=== PATIENT | female | born 1990 | race Caucasian/White ===

== ENCOUNTER 2023-04-07 09:09 | Outpatient (AMB) | payer OTHER, SELFPAY ==
[2023-04-07 09:19] VITALS: BP 118/76; PULSE 78; RESP 13; TEMP 36.4; O2SAT 98; BMI 44.7
--- NOTE | 2023-04-07 09:19 | MHC.PC.OV ---
Vital Signs 04/07/23 09:19 Height 5 ft 4 in Weight 260 lb 4 oz BMI 44.7 BP 118/76 Blood Pressure Location Lt brachial Position Sitting Respiration 13 Pulse 78 Pulse Source Pulse Oximeter Temp 97.6 F Temp Source Temporal Artery Scan Pulse Oximetry (%) 98 Oxygen Delivery Method Room Air Intake Visit Reasons: New patient-Requesting physical Intake Note: Patient hasn't seen a doctor since 2018. Patient states that she is having vision issues that causes double vision and blurred vision. Patient states that she is having trouble swallowing because it feels like when she eats or drinks it feels like its sitting in her throat and on her chest.Patient states that she sighs alot and may have a hiadial hernia. Patient states that she smells random smells that aren't there and the smell is so strong that it makes her gag. Patient states that whrn she asks if anyone else smells it no one else can smell it. Dispatch Associate Required: No Accompanied by: Self / Same As Patient Allergies naloxone [From Narcan] Adverse Reaction (Severe, Verified 04/07/23 09:40) Anaphylaxis naltrexone Adverse Reaction (Severe, Verified 04/07/23 09:40) Anaphylaxis Medication List - Last Reconciled 04/07/23 by Rosa Isela Hurley CNP clonidine HCl 0.1 mg PO BID methadone 95 mg PO DAILY topiramate 25 mg PO BID valacyclovir (Valtrex) 1,000 mg PO DAILY PRN valacyclovir (Valtrex) 500 mg PO DAILY Tobacco use date assessed: 04/07/23 Dental Screening Dental Screen Date: 04/07/23 Did you have a dental visit in the last 12 months?: No Did you have a dental problem in the last 6 months where you did not have access to dental care?: No Was dental information given to patient?: Yes HPI HPI Comments History of Present Illness Details 33-year-old [facility] She notes that she was last evaluated by her former PCP and had routine blood work done in 2018. She has past medical history significant for generalized headaches, substances disorder (heroin and cocaine), genital herpes, eczema, ADHD, anxiety, and depression. She is on clonidine, methadone, topiramate, and acyclovir. She admits to taking her medications as prescribed. She notes that her mood is stable on Clonidine. She notes that she sees a therapist weekly and a psychiatrist monthly. She reports blurry and double vision of both eyes immediately after reading, lasting 1-2 hours. These symptoms have been ongoing for the past 4-6 months. She also reports difficulty swallowing on while eating and drinking. She states it feels like something is sitting in her throat when she eats and drinks. She notes that these symptoms have been persistent for the past 2-3 years. She notes that she has not use recreational drugs for the past 5 years. She goes to a methadone clinic. She notes that she binge eats unhealthy foods and has not been exercising. She requests help with weight loss. She notes that she that she is , no currently sexually active, and has no concerns for STD. She notes that her last pap smear test was in 2018: normal [facility] Medical History (Updated 04/07/23 @ 10:20 by Rosa Isela Hurley CNP) Delivery by emergency section Memory loss Generalized headaches Eczema Genital herpes ADHD Anxiety and depression Substance use disorder Viral meningitis Surgical History (Updated 04/07/23 @ 09:47 by Lianna Cheng MA) No pertinent past surgical history Family History (Updated 04/07/23 @ 09:51 by Lianna Cheng MA) Mother High blood pressure Thyroid disorder Alcoholism Psychiatric disorder Father High blood pressure High cholesterol Diabetes Cardiovascular disease Alcoholism Social History Housing: Condominium Patient Tobacco Use Status: Former Tobacco user e-Cigarette/Vaping Use: Currently Using service: No Current occupational status: student Cognitive needs: No Hearing needs: No Vision needs: Yes Questionnaire PHQ-9 Over the last 2 weeks, how often have you been bothered by any of the following problems? 1. Little interest or pleasure in doing things: more than half the days 2. Feeling down, depressed, or hopeless: more than half the days 3. Trouble falling or staying asleep, or sleeping too much: more than half the days 4. Feeling tired or having little energy: more than half the days 5. Poor appetite or overeating: more than half the days 6. Feeling bad about yourself - or that you are a failure or have let yourself or your family down: more than half the days 7. Trouble concentrating on things, such as reading the newspaper or watching television: not at all 8. Moving or speaking so slowly that other people could have noticed. Or the opposite - being so fidgety or restless that you have been moving around a lot more than usual: more than half the days 9. Thoughts that you would be better off or of hurting yourself in some way: not at all Total score: 14 Depression Screening Interpretation: Positive Depression Screening Follow-up: Existing condition and In treatment Depression Screening Done: Yes Source: Developed by Drs. Ace Tolentino, Valery Fuentes, Edgar Aguilar and colleagues, with an educational atiya from [employer]. Thrive Questionnaire Date Thrive assessed: 04/07/23 I am a: Patient What is your living situation today?: I have a steady place to live Within the past 12 months, did the food you bought not last and you didn't have the money to get more?: Often true Within the past 12 months, did you worry whether your food would run out before you got money to buy more?: Often true Do you have trouble paying for medicines?: No Do you have trouble getting transportation to medical appointments?: No Do you have trouble paying your heating and electricity bill?: Yes Do you have trouble taking care of your child, family member or friend?: No Do you have trouble with day-to-day activities such as bathing, preparing meals, shopping, managing finances, etc.?: Yes Are you currently unemployed and looking for a job?: No Are you interested in more education?: Yes Please select the resources that you would like help with: Food, Utilities, Daily support and Education Currently or been in a relationship where the following occur: no concerns reported AUDIT C Alcohol Use Questionnaire (AUDIT-C) 1. How often do you have a drink containing alcohol?: Never 3. How often do you have six or more drinks on one occasion?: Never Total Score: 0 JAE-7 AMB Questionnaire JAE-7 Date JAE - 7 assessed: 04/07/23 Feeling nervous, anxious, or on edge: 2 = More than half the days Not being able to stop or control worryin = More than half the days Worrying too much about different things: 2 = More than half the days Trouble relaxin = Nearly every day Being so restless that it is hard to sit still: 1 = Several days Becoming easily annoyed or irritable: 3 = Nearly every day Feeling afraid as if something awful might happen: 1 = Several days Total JAE-7 score (0-4 normal; 5-9 mild; 10-14 moderate; 15-21 severe): 14 Source: Developed by Drs. Ace Tolentino, Valery Fuentes, Edgar Aguilar and colleagues, with an educational atiya from [employer]. Review of Systems Const Details: Denies chills, Denies fatigue, Denies fever(s), Denies headache(s) and Denies weakness HEENT Denies change in vision, Denies dizziness, Denies headache(s), Denies hearing loss, Denies nasal congestion, Denies sinus pain, Denies sinus pressure and Denies sore throat Card Denies chest pain, Denies lightheadedness, Denies dyspnea and Denies other (palpitations) Resp Denies cough, Denies dyspnea and Denies wheezing GI Denies abdominal pain, Denies melena, Denies hematochezia, Denies change in bowel habits, Denies dyspepsia and Denies nausea Denies hematuria and Denies dysuria Musc Denies abnormal gait, Denies myalgias, Denies arthralgias, Denies numbness and Denies tingling Skin/Breast Denies rash, Denies unusual bruising and Denies wounds Neuro Denies abnormal gait, Denies dizziness, Denies headache(s), Denies memory loss, Denies numbness, Denies Sensory deficit (Neuro), Denies tingling and Denies weakness Psych Denies anxiety, Denies depression and Denies memory loss Endo Denies cold intolerance, Denies fatigue, Denies heat intolerance, Denies polydipsia and Denies polyuria Goeff/Lymph Denies easy bleeding and Denies easy bruising Aller/Immun Denies wheezing Physical exam (Primary Care) Vital Signs: Last Vital Signs Temp 97.6 F 04/07/23 09:19 Pulse 78 04/07/23 09:19 Resp 13 04/07/23 09:19 BP 118/76 04/07/23 09:19 Pulse Ox 98 04/07/23 09:19 Oxygen Delivery Method Room Air 04/07/23 09:19 BMI result Body Mass Index 44.7 Tobacco/Smoking Status: Tobacco use Status Tobacco use date assessed 04/07/23 04/07/23 09:37 Patient Tobacco Use Status Former Tobacco user 04/07/23 09:37 e-Cigarette/Vaping Use Currently Using 04/07/23 09:37 PHQ-9: PHQ-9 Score PHQ-9: Total score 16 04/07/23 10:01 Depression Screening Interpretation: Positive Depression Screening Follow-up: Existing condition and In treatment Thrive Assessment: Date of Thrive Assessment Date Thrive assessed 04/07/23 04/07/23 09:43 Currently or been in a relationship where the following occur: no concerns reported Const Other: General: no acute distress, well developed, alert and awake Nutritional Appearance: well nourished Orientation/consciousness: patient oriented x3 HENMT Head: Yes normocephalic and Yes atraumatic Ears: hearing grossly normal bilaterally and TM's normal bilaterally General nose exam: Normal external nose present and Normal nares present Mouth: Normal oral and palatal mucosa present and moist mucous membranes Teeth and gingiva: dentition normal Throat: Yes oropharynx normal Eyes Pupils: Equal, round and reactive pupils present and Pupil accommodation reflex normal EOM: EOMs intact bilaterally Neck Neck: Yes normal visual inspection, Yes no lymphadenopathy and Yes trachea midline Thyroid: Thyroid normal Carotids: no bruits Lymphatic: no lymphadenopathy noted Chest Chest palpation & inspection: normal inspection of the chest Resp Effort & Inspection: normal respiratory effort Auscultation: clear to auscultation bilaterally Cardio Rate: regular rate Rhythm: regular rhythm Heart sounds: S1 normal heart sound present, S2 normal heart sound present, no gallops, no murmurs and no rubs Bruits: no abdominal aortic bruits and no carotid bruits GI Palpation (GI): No Abdominal aortic bruit present, Soft to palpation, nontender, No hepatosplenomegaly present and No Rebound tenderness present Auscultation: normal bowel sounds General: Yes no CVA tenderness Back/Spine/Pelvis Back: no CVA tenderness Cervical Spine: cervical ROM normal and No Cervical spine tenderness Thoracic/Lumbar Spine: thoraco-lumbar ROM normal, No pain with thoraco-lumbar ROM, No thoracic spinal tenderness and No lumbar spinal tenderness Skin General: warm and dry. Normal skin color. Normal skin turgor Lesions: no lesions Rashes: no rashes Trauma: no lacerations or abrasions Wounds: no wounds Nails: normal Neuro General: patient oriented x3, gait normal and CN's II-XI intact bilaterally Cranial nerves: Yes Equal, round and reactive pupils present Cognition (Neuro): normal cognition Gait exam (Neuro): Normal gait present Motor exam (neuro): 5/5 motor strength present throughout Sensory Exam: No Sensory deficit (Neuro) Deep tendon reflexes (DTR's): Right patellar reflex intensity grade: 2+ and Left patellar reflex intensity grade: 2+ Extrem General: Yes normal to inspection, No edema and No calf tenderness Psych Appearance: grossly normal Affect: normal affect Attitude: cooperative Thought process: Normal thought process present Assessment and Plan Assessment & Plan (1) Normal physical examination, routine: Code(s): Z00.00 - Encounter for general adult medical examination without abnormal findings Plan: No significant physical restrictions or limitations noted Advised to get fasting blood work done before her next visit Follow-up in 1 month for labs review, anxiety, and depression. Return sooner with worsening or new symptoms Verbalized understanding and agreed with treatment plan. (2) Visual disturbances: Code(s): H53.9 - Unspecified visual disturbance Plan: She reports blurry and double vision of both eyes immediately after reading, lasting 1-2 hours. These symptoms have been ongoing for the past 4-6 months. Normal eye exam Normal blood pressure No acute symptoms Referred to Ophthalmology Return with worsening or new symptoms Verbalized understanding and agreed with treatment plan. (3) Dysphagia: Code(s): R13.10 - Dysphagia, unspecified Plan: She also reports difficulty swallowing on while eating and drinking. She states it feels like something is sitting in her throat when she eats and drinks. She notes that these symptoms have been persistent for the past 2-3 years. Normal swallowing No current symptoms Referred to ENT Return with worsening or new symptoms Verbalized understanding and agreed with treatment plan. (4) Anxiety and depression: Code(s): F41.9 - Anxiety disorder, unspecified; F32.A - Depression, unspecified Plan: PHQ-9 and JAE-7 scores revealed moderately severe depression and moderate anxiety respectively She denies acute anxiety and depression symptoms Continue to take clonidine as prescribed Continue follow-up with therapist and psychiatrist as planned Follow-up in 1 month or return sooner with worsening or new symptoms Verbalized understanding and agreed with treatment plan. (5) Morbid obesity with BMI of 40.0-44.9, adult: Code(s): E66.01 - Morbid (severe) obesity due to excess calories; Z68.41 - Body mass index [BMI] 40.0-44.9, adult Plan: She notes that she binge eats unhealthy foods and has not been exercising. She requests help with weight loss. She weighs 260 lb, BMI is 44.7 Healthy diet and routine exercise encouraged Referred to with management Return with symptoms or concerns Verbalized understanding and agreed with treatment plan. (6) Binge eating: Code(s): R63.2 - Polyphagia Plan: As above (7) Substance use disorder: Code(s): F19.90 - Other psychoactive substance use, unspecified, uncomplicated Plan: In remission She reports history of heroin and cocaine use She notes that she has not use recreational drugs for the past 5 years. She goes to a methadone clinic She is currently on methadone 95 mg daily. Advised to continue to take as prescribed Continue to go to the methadone clinic Follow-up with symptoms or concerns Verbalized understanding and agreed with treatment plan. (8) Pap smear for cervical cancer screening: Code(s): Z12.4 - Encounter for screening for malignant neoplasm of cervix Plan: She notes that her last Pap smear test was in 2018: Normal Referred to [facility] director labor standards (9) Laboratory tests ordered as part of a complete physical exam (CPE): Code(s): Z00.00 - Encounter for general adult medical examination without abnormal findings Plan: Fasting labs ordered as part of a complete physical exam. Advised to fast for at least 10 hours before getting labs drawn. May drink water Verbalized understanding and agreed with treatment plan. Orders: Orders Complete Blood Count Auto Diff Today Z00.00 - Encounter for general adult medical examination without abnormal findings Lipid Panel Today Z00.00 - Encounter for general adult medical examination without abnormal findings TSH reflex Free T4 Today Z00.00 - Encounter for general adult medical examination without abnormal findings Comprehensive [place]. Panel Fast Today Z00.00 - Encounter for general adult medical examination without abnormal findings UA CC w/rflx Micro + Cult Today Z00.00 - Encounter for general adult medical examination without abnormal findings Referrals TEST DEVELOPER Referral Z12.4 - Encounter for screening for malignant neoplasm of cervix Medical Weight Management Referral E66.01 - Morbid (severe) obesity due to excess calories, R63.2 - Polyphagia, Z68.41 - Body mass index [BMI] 40.0-44.9, adult Ophthalmology Referral H53.9 - Unspecified visual disturbance Ear/Nose/Throat Referral R13.10 - Dysphagia, unspecified Coding Level of Care Code New Pt Level 3 (99782) New Pt Prev Care 18-39yr([id number] Diagnoses Normal physical examination, routine Z00.00 Visual disturbances H53.9 Dysphagia R13.10 Anxiety and depression F41.9; F32.A Morbid obesity with BMI of 40.0-44.9, adult E66.01; Z68.41 Binge eating R63.2 Substance use disorder F19.90 Pap smear for cervical cancer screening Z12.4 Laboratory tests ordered as part of a complete physical exam (CPE) Z00.00
== END 2023-04-07 10:08 | disposition home or self-care (01) ==
PROVIDERS: PCP Nurse Practitioner Family; Visit Provider Nurse Practitioner Family
DX: Z00.00 Encounter for general adult medical examination without abnormal findings (principal); H53.9 Unspecified visual disturbance; E66.01 Morbid (severe) obesity due to excess calories; Z68.41 Body mass index [BMI] 40.0-44.9, adult; R13.10 Dysphagia, unspecified; F41.9 Anxiety disorder, unspecified; F32.A Depression, unspecified; R63.2 Polyphagia; F19.90 Other psychoactive substance use, unspecified, uncomplicated; Z12.4 Encounter for screening for malignant neoplasm of cervix
CPT/HCPCS: 99385

== ENCOUNTER 2023-04-15 09:05 | Outpatient (REF) | payer OTHER, SELFPAY ==
[2023-04-15 10:21] LABS: Basophils Absolute Auto 0.1 X10*3/uL (0.0-0.2); Basophils Percent Auto 0.8 % (0-2); Eosinophils Absolute Auto 0.3 X10*3/uL (0.0-0.4); Hematocrit 41.6 % (37.0-47.0); Hemoglobin 14.2 g/dl (12.0-16.0); Imm Gran Abs Auto 0.03 X10*3/uL (0.00-0.03); Imm Gran Pct Auto 0.5 % (0.0-0.4); Lymphocytes Absolute Auto 1.5 X10*3/uL (1.2-4.9); Lymphocytes Percent Auto 23.5 % (20-40); MANUAL DIFF FLAG SCAN; Mean Corpuscular HGB Conc 34.1 g/dl (31.0-35.0); Mean Corpuscular Hemoglobin 30.8 pg (27.0-33.0); Mean Corpuscular Volume 90.2 fL (80.0-98.0); Mean Platelet Volume 10.5 fL (9.4-12.3); Monocytes Absolute Auto 0.4 X10*3/uL (0.1-1.2); Monocytes Percent Auto 6.9 % (2-11); Neutrophils Percent Auto 63.3 % (45-73); PLT CLUMP 1; Red Blood Count 4.61 X10*6/uL (4.20-5.50); Red Cell Distribution Width 13.2 % (11.0-16.0); SCAN SMEAR FLAG 1
[2023-04-15 10:32] LABS: Appearance Urine Turbid; Color Urine Yellow; Glucose Urine UA Negative (Negative); Leukocyte Esterase Urine Trace (Negative); Nitrite Urine Negative (Negative); PH 7.5 (5.0-9.0); UMIC TRIGGER UACC YES; Urine Blood Moderate (2+) (Negative); Urine Ketones Negative (Negative); Urine Protein Negative (Neg-Trace)
[2023-04-15 10:36] LABS: Alanine Aminotransferase 10 U/L (0-31); Albumin Level 3.8 g/dL (3.5-5.0); Alkaline Phosphatase 67 U/L (39-117); Anion Gap 13 (12-20); Aspartate Amino Transferase 16 U/L (5-31); Bilirubin Total 0.3 mg/dL (0.0-1.0); Blood Urea Nitrogen 19 mg/dL (9-16); Calcium 9.3 mg/dL (8.4-10.2); Carbon Dioxide 19 mmol/L (22-29); Chloride 110 mmol/L (96-108); Cholesterol 174 mg/dL (<200); Estimated Glomerular Filt Rate > 60; Glucose Fasting 99 mg/dL (60-99); HDL Cholesterol 35 mg/dL (>40); LDL Cholesterol Calculated 122 mg/dL (<100); Potassium 4.2 mmol/L (3.3-5.1); Sodium 138 mmol/L (135-145); Total Protein 7.2 g/dL (6.5-8.0); Triglycerides 89 mg/dL (<150)
[2023-04-15 10:46] LABS: Platelet Count 166 X10*3/uL (160-400); White Blood Count 6.4 X10*3/uL (4.8-10.8)
[2023-04-15 10:49] LABS: Bacteria Urine 2+ (None Seen); Hyaline Casts Urine 0-2 /LPF (0-2); Other Crystals Urine Present; RBC Urine 0-2 /HPF (0-2); WBC Urine 0-5 /HPF (0-5)
[2023-04-15 10:54] LABS: TSH reflex Free T4 0.53 uIU/mL (0.32-4.0)
[2023-04-15 10:59] LABS: SLIDE REVIEW VERIFIED
== END 2023-04-15 09:06 | disposition home or self-care (01) ==
LOC: HO.LAB 09:05
PROVIDERS: Visit Provider Nurse Practitioner Family
DX: Z00.00 Encounter for general adult medical examination without abnormal findings (principal)
CPT/HCPCS: 36415; 80053; 80061; 81001; 84443; 85025

== ENCOUNTER → 2023-09-15 09:45 | Outpatient (BNVA) | payer OTHER, SELFPAY | PROVIDERS: PCP Nurse Practitioner Family; Visit Provider Advanced Practice Midwife ==

== ENCOUNTER 2025-01-21 16:56 | Emergency (ER) | payer OTHER, SELFPAY ==
--- NOTE | ~2025-01-21 | XR_ITS ---
CLINICAL HISTORY: pain s p injury 3 view right ankle Comparison: None provided Findings: No acute fractures. There is widening of the superolateral ankle mortise. No significant loss of joint space, osteophytes, or erosions. No ankle effusion. No radiopaque foreign body. IMPRESSION: No evidence of osseous injury. Findings suggestive of ligamentous injury. This document has been electronically signed by: Katherine Mccray MD on 01/21/2025 18:05:46
--- NOTE | ~2025-01-21 | XR_ITS ---
CLINICAL HISTORY: pain s p injury 4 view right foot Comparison: None provided Findings: No fractures or dislocations. No significant loss of joint space, osteophytes, or erosions. No ankle effusion. No radiopaque foreign body. IMPRESSION: 1. No acute findings. This document has been electronically signed by: Katherine Mccray MD on 01/21/2025 18:07:00
--- OUTSIDE RECORDS SUMMARY | 2025-01-21 16:12 | XMS_ITS | Encounter Summary ---
Author Organization [facility] Address [id number] [place] [id number] Care Team Providers Care Medical Doctor Nuclear Medicine Name Role Phone Physician, No Pcp Primary Care Provider Unavaila ble Reason for Visit * Reason Comments Fall RIGHT FOOT INJURY- N O LOC Encounter Details Date Type Department Care Team (Late st Contact Info) Description 01/21/2025 4:12 PM EDT - 01/21/2025 4:47 PM EDT [facility] [address] [place] [address] Discharge Disposition: Home or Self Care Social History Tobacco Use Types Packs/Day Years Used Date Smoking Tobacco: Never Assessed Comments Unknown Sex and Gender Information Value Date Recorded Sex Assigned at Not on file Legal Sex Female 6:49 AM EST Gender Identity Not on file Sexual Orientation Not on file documented as of this encounter Discharge Disposition Disposition Code Departure Means Destination Home or Self Care documented in this encounter Plan of Treatment Not on file documented as of this encounter Visit Diagnoses Not on filedocumented in this encounter Care Teams Medical Doctor Nuclear Medicine Relationship Specialty Start Date End Date Physician, No Pcp PCP - General 01/21/25 documented as of this encounter
[2025-01-21 17:12] VITALS: BP 154/89; PULSE 86; RESP 16; TEMP 36.4; O2SAT 96; BMI 35.7
--- NOTE | 2025-01-21 17:13 | ED.LOWEXIN ---
HPI - Extremity Injury (Lower) General Chief Complaint: Extremity Injury, Lower Stated Complaint: R ankle inj Time Seen by Provider: 01/21/25 18:12 Source: patient, RN notes reviewed and old records reviewed Mode of arrival: wheelchair Limitations: no limitations History of Present Illness ED Provider: Negin Montoya PA-C HPI Narrative: 34 yo female presents to the ER for evaluation of right ankle and foot pain after she tripped over a cord while helping her dad skim the pool today. unable to bear weight since. heard a snap/pop and now has severe pain in the right ankle and foot. able to dorsiflex and plantarflex in triage. in wheelchair. pain is mostly in the lateral ankle and outer foot. no numbess or tingling. no knee or hip pain. MD complaint: ankle injury and foot injury Onset (ago): hour(s) Type of Injury: inversion Place: home Severity: severe Severity scale (1-10): 9 Relieving factors: immobilization Exacerbating factors: weight bearing, movement and palpation Context: fall and walking Associated symptoms: snap/pop sensation, swelling and able to partially bear weight Other symptoms: none Treatments prior to arrival: cold therapy Related Data Home Medications ?Medication ?Instructions ?Recorded ?Confirmed clonidine HCl 0.1 mg tablet 0.1 mg PO BID 04/07/23 09/15/23 methadone 5 mg/5 mL oral solution 95 mg PO DAILY 04/07/23 09/15/23 valacyclovir 1 gram tablet 1,000 mg PO DAILY PRN 04/07/23 09/15/23 (Valtrex) valacyclovir 500 mg tablet 500 mg PO DAILY 04/07/23 09/15/23 (Valtrex) hydroxyzine pamoate 50 mg capsule 50 mg PO BID PRN 09/15/23 09/15/23 lamotrigine 25 mg tablet 50 mg PO DAILY 09/15/23 09/15/23 lisdexamfetamine 10 mg capsule 10 mg PO QAM 09/15/23 09/15/23 (Vyvanse) venlafaxine 75 mg capsule,extended 75 mg PO DAILY 09/15/23 09/15/23 release 24 hr Allergies Allergy/AdvReac Type Severity Reaction Status Date / Time naloxone (From Narcan) AdvReac Severe Anaphylaxis Verified 01/21/25 17:12 naltrexone AdvReac Severe Anaphylaxis Verified 01/21/25 17:12 Review of Systems Review of Systems: Yes all other systems are reviewed and are negative [facility] Past Medical History Medical History (Updated 01/21/25 @ 18:14 by MARIA DE JESUS Hutchinson) Delivery by emergency section Memory loss Generalized headaches Eczema Genital herpes ADHD Anxiety and depression Substance use disorder Viral meningitis Surgical History (Updated 09/15/23 @ 10:15 by EDGAR Sorensen) Hx of section No pertinent past surgical history Family History Family History (Updated 09/15/23 @ 10:27 by EDGAR Sorensen) Mother High blood pressure Thyroid disorder Alcoholism Psychiatric disorder Father High blood pressure High cholesterol Diabetes Cardiovascular disease Alcoholism Maternal Aunt Ovarian cancer Social History Social History (Updated 09/15/23 @ 10:28 by EDGAR Sorensen) Housing: Condominium Patient Tobacco Use Status: Former Tobacco user Cigarettes Per Day: 5 e-Cigarette/Vaping Use: Currently Using Substance Use Type: Marijuana service: No Current occupational status: student Cognitive needs: No Hearing needs: No Vision needs: Yes Physical Exam Exam: Exam: Appearance: Alert. Oriented X3. No acute distress. HEENT: normal inspection CVS: Normal heart rate and rhythm. Pulses normal. Respiratory: No respiratory distress. Skin: Skin warm and dry. Normal skin color. Normal skin turgor. No rashes. Extremities: mild/moderate swelling of the right lateral ankle, no point tenderness to the lateral malleolus. pain with internal/external rotation, able to dorsiflex and plantarflex. right foot with mild swelling laterally with tenderness of the 4th and 5th metatarsals. no ecchomsis. NV intact distally. foot is warm and well perfused. Neuro: Oriented X 3. gait not tested due to pain Vital Signs: Vital Signs: Last Vital Signs Temp 97.6 F 01/21/25 17:12 Pulse 86 01/21/25 17:12 Resp 16 01/21/25 17:12 BP 154/89 H 01/21/25 17:12 Pulse Ox 96 01/21/25 17:12 O2 Del Method Room Air 01/21/25 17:12 BMI result Body Mass Index 35.7 Medical Decision Making Medical Decision Making MDM Narrative: 34 yo female presenting with right ankle and foot pain s/p inversion injury this afternoon. unable to bear weight. mild/moderate swelling of the right lateral ankle. no gross deformity XR of the foot and ankle do not show any acute fractures. clinical presentation most c/w ankle sprain/strain. crutches and air cast provided. discussed supportive care with rest, ice, compression and elevation. hx several ankle sprains in the past while playing softball. stable for d/c home with her dad. Differential Diagnosis Differential Diagnoses: The differential diagnosis associated with the presentation includes ankle sprain, ankle fracture, foot fracture, foot contusion Independent Interpretation I performed an independent interpretation of an: Plain X-Ray Interpretation: xray foot and ankle reviewed no acute fx appreciated Radiology Impression Discussion of test interpretation with radiology: I have reviewed the radiologist's reading. Independent Historian Clinical information obtained from an independent historian. History obtained from or confirmed by: Parent External Record Review External record reviewed: Prior outpatient labs and Prior outpatient radiology Prescription Management I considered prescription management with: Pain Medication Chronic Conditions Patient?s care impacted by: Other (obesity ) Critical Care Time Critical Care Time Critical Care Time: No Discharge Plan Discharge Clinical Impression: Ankle sprain and strain Patient Disposition: Home, Self-Care Instructions: Ankle Sprain (DC) Additional Instructions: Your x-ray today showed no broken bones. there is evidence of ligament injury, also known as a sprain. Rest your ankle and elevate your foot when possible. Recommend MICHAEL wrap for support and compression. Use ice several times per day for the next 48 hours. You may bear weight as tolerated. If pain is too severe, use crutches until better. Take Motrin and/or Tylenol as needed for pain. Follow up with your doctor as needed. Prescriptions: No Action valacyclovir [Valtrex] 500 mg tablet 500 mg PO DAILY valacyclovir [Valtrex] 1 gram tablet 1,000 mg PO DAILY PRN Rx Instructions: Used for outbreaks. methadone 5 mg/5 mL solution 95 mg PO DAILY clonidine HCl 0.1 mg tablet 0.1 mg PO BID lisdexamfetamine [Vyvanse] 10 mg capsule 10 mg PO QAM venlafaxine 75 mg capsule,extended release 24hr 75 mg PO DAILY hydroxyzine pamoate 50 mg capsule 50 mg PO BID PRN lamotrigine 25 mg tablet 50 mg PO DAILY Print Language: Maltese
--- OUTSIDE RECORDS SUMMARY | 2025-01-21 18:28 | XMS_ITS | Clinical Summary ---
Author Organization [employer] [facility] Address [address] [place] [address] Care Team Providers Care Jockey'S Agent Name Role Phone Unavailable Primary Care Provider Unavailabl e Social History Tobacco Use Types Packs/Day Years Used Date Smoking Tobacco: Never Assessed Sex and Gender Information Value Date Recorded Sex Assigned at Not on file Gender Identity Not on file Sexual Orientation Not on file Plan of Treatment Not on file
--- OUTSIDE RECORDS SUMMARY | 2025-01-21 18:28 | XMS_ITS | Clinical Summary ---
Author Organization [facility] Address [address] [place] [id number] Phone Care Team Providers Care [place] Dispatch Supervisor Name Role Phone Unavailable Primary Care Provider Unavailabl e Social History Tobacco Use Types Packs/Day Years Used Date Smoking Tobacco: Never Assessed Comments Unknown Sex and Gender Information Value Date Recorded Sex Assigned at Not on file Legal Sex Female 6:12 PM EDT Gender Identity Not on file Sexual Orientation Not on file Plan of Treatment Health Maintenance Due Date Last Done Comments MMR Vaccines (1 of 1 - Stand leandra series) 1990 Varicella Vaccines (1 of 2 - 13+ 2-dose series) 2002 DTaP,Tdap,and Td Vaccines (1 - Tdap) 2007 Hepatitis B Vaccines (1 of 3 - 19+ 3-dose series) 2008 COVID-19 Vaccine ( - 2023-2 5 season) 2024 Influenza Vaccines (#1) 2025 HIB Vaccines Aged Out No longer eligi ble based on patient's age to complete this topic HPV Vaccines Aged Out No longer eligi ble based on patient's age to complete this topic Hepatitis A Vaccines Aged Out No long er eligible based on patient's age to complete this topic IPV Vaccines Aged Out No longer eligi ble based on patient's age to complete this topic Men B Vaccine Aged Out No longer elig ible based on patient's age to complete this topic Meningococcal Vaccine Aged Out No mauricio omayra eligible based on patient's age to complete this topic Pneumococcal Vaccine Aged Out No long er eligible based on patient's age to complete this topic
== END 2025-01-21 18:39 | disposition home or self-care (01) ==
LOC: HO.ED 18:26
PROVIDERS: Emergency Provider Emergency Medicine Emergency Medical Services
DX: S93.401A Sprain of unspecified ligament of right ankle, initial encounter (principal); M25.571 Pain in right ankle and joints of right foot; M79.671 Pain in right foot; W01.0XXA Fall on same level from slipping, tripping and stumbling without subsequent striking against object, initial encounter; Y93.9 Activity, unspecified; Y92.9 Unspecified place or not applicable; Y99.9 Unspecified external cause status
CPT/HCPCS: 73610; 73630; 99283

== ENCOUNTER → 2025-01-21 17:13 | Outpatient (BNV) | payer OTHER, SELFPAY | PROVIDERS: Emergency Provider Emergency Medicine Emergency Medical Services; Visit Provider Radiology Diagnostic Radiology | DX: M25.571 Pain in right ankle and joints of right foot (principal); M79.671 Pain in right foot | CPT/HCPCS: 73610; 73630 ==